=== PATIENT | male | born 1965 | race Caucasian/White ===

== ENCOUNTER 2016-10-28 11:09 | Emergency (ER) | payer OTHER ==
[~2016-10-28] VITALS: Ht 182.9 cm; Wt 113.4 kg
--- NOTE | ~2016-10-28 | EKG ---
[address] [place] [address] ELECTROCARDIOGRAM REPORT Name: MELIZA ARCHIBALD [facility]: [id number] Admission: 10/28/16 Attend Phys: Discharge: Date of : 63 Report #: [id number] THIS REPORT FOR: //name// [facility] ED Test Date: 2016-10-28 Test Time: 11:10:14 Pat Name: MELIZA ARCHIBALD Department: Room: Gender: House Wirer: ELMA : 1965 Requested By: Laurie Goodwin Order Number: [id number] MD: Vaibhav Ordoñez Measurements Intervals [place] Rate: 95 P: 22 NV: 130 QRS: 3 QRSD: 80 T: 21 QT: 375 QTc: 472 Interpretive Statements Sinus rhythm No previous ECG available for comparison Electronically Signed On 10-28-2016 14:08:37 CDT by Vaibhav Ordoñez [email or web address] <ELECTRONICALLY SIGNED> By: Vaibhav Ordoñez MD 10/28/16 1408 1110 1110 Vaibhav Ordoñez MD /EPI
[2016-10-28] MEDS ORDERED: VITAMIN D2000 UNIT PO (11:28)
[2016-10-28] MEDS ORDERED: ATORVASTATIN CA40 MG PO (11:28)
[2016-10-28] MEDS ORDERED: PROZAC20 MG PO (11:28)
[2016-10-28] MEDS ORDERED: METFORMIN HCL500 MG PO (11:28)
[2016-10-28] MEDS ORDERED: ASPIR 8181 MG PO (11:29)
[2016-10-28] MEDS ORDERED: LISINOPRIL20 MG PO (11:29)
[2016-10-28 11:54] LABS: ABSOLUTE NEUTROPHILS 4.1 thou/uL (1.4-8.2); BASOPHILS 1.2 % (0.0-2.0); EOSINOPHILS 2.7 % (0.0-3.0); HEMATOCRIT 42.8 % (42.0-52.0); HEMOGLOBIN 14.4 gm/dL (14.0-18.0); LYMPHOCYTES 35.3 % (24.0-44.0); MCH 28.9 pg (26.0-34.0); MCHC 33.6 g/dL (28.0-37.0); MCV 85.9 fL (80.0-100.0); MONOCYTES 9.5 % (1.0-8.0); PLATELET COUNT 200 thou/uL (150-400); POLYS 51.3 % (36.0-66.0); RBC 4.98 mil/uL (4.50-6.00); RDW 13.1 % (10.5-14.5)
[2016-10-28 11:56] LABS: MANUAL DIFF NO
[2016-10-28 11:58] LABS: CALCIUM 8.9 mg/dL (8.5-10.1); CREATININE 1.1 mg/dL (0.7-1.3); POTASSIUM 3.5 mmol/L (3.5-5.1)
[2016-10-28 12:04] LABS: ALBUMIN 4.1 g/dL (3.4-5.0); DIRECT BILIRUBIN 0.1 mg/dL (<0.1-0.3); TOTAL BILIRUBIN 0.7 mg/dL (<0.1-1.0); TOTAL PROTEIN 7.5 g/dL (6.4-8.2)
[2016-10-28 14:22] VITALS: BP 112/73
== END 2016-10-28 14:23 | disposition home or self-care (01) ==
LOC: EDBD 11:09 → ER 11:09
PROVIDERS: Emergency Medicine
DX: R07.89 Other chest pain (principal); F10.99 Alcohol use, unspecified with unspecified alcohol-induced disorder; Z79.82 Long term (current) use of aspirin